=== PATIENT | female | born 1995 | race Caucasian/White ===

== ENCOUNTER 2018-12-07 10:42 | Emergency (ER) | payer SELFPAY ==
[2018-12-07] MEDS ORDERED: LIDOCAINE 1% 20 ML MDV ONE (11:03)
--- NOTE | 2018-12-07 12:18 | RAD REPORT ---
EXAM DESCRIPTION: RAD - Tib Fib Right - 12/07/2018 11:27 am CLINICAL HISTORY: Right leg pain . FINDINGS: No fracture is seen Laceration involves the anterior lower right knee.
--- NOTE | 2018-12-07 12:19 | RAD REPORT ---
EXAM DESCRIPTION: RAD - Hand Right 3 View - 12/07/2018 11:27 am CLINICAL HISTORY: Right hand pain status post injury FINDINGS: No fracture or dislocation is seen.
[2018-12-07] MEDS ORDERED: AMOX/K CLAV 875 MG TAB ONE (12:55)
--- NOTE | 2018-12-07 12:57 | ER ---
Nurse's Notes [facility] Name: Rachele Quiroz Age: 23 yrs Sex: Female : 1995 Arrival Date: 12/07/2018 Time: 10:44 Bed 16 Private MD: Diagnosis: Dog Bite;Right Leg Laceration;Right 3rd finger laceration Presentation: 12/07 10:40 Presenting complaint: EMS states: Pt. is A \T\ O x 4, was working at the [facility] when she rb1 was bitten by two different dogs on the right knee and right middle digit. The wound was dressed by EMS on site. NKDA and no medications. BP 145/82, P 128, R 20, 99% RA. Transition of care: [facility]. Onset of symptoms was December 07, 2018 at 10:25. Risk Assessment: Do you want to hurt yourself or someone else? Patient reports no desire to harm self or others. Initial Sepsis Screen: Does the patient meet any 2 criteria? No. Patient's initial sepsis screen is negative. Does the patient have a suspected source of infection? No. Patient's initial sepsis screen is negative. Care prior to arrival: None. 10:40 Method Of Arrival: EMS: [facility] rb1 10:40 Acuity: JAZIEL 3 rb1 Triage Assessment: 10:40 Bite description: bite sustained to right knee and right middle digit is from animal, rb1 was sustained less than 30 minutes ago. by a dog, animal information: vaccination(s) is unknown, was sustained less than 30 minutes ago. Animal status: [facility]. General: Appears uncomfortable, Behavior is anxious. Pain: Complains of pain in Right knee and right middle digit. Neuro: Level of Consciousness is awake, alert, obeys commands, Oriented to person, place, time, situation. Cardiovascular: Capillary refill < 3 seconds is brisk in bilateral fingers. Respiratory: Airway is patent Respiratory effort is even, unlabored, Respiratory pattern is regular, symmetrical. GI: No signs and/or symptoms were reported involving the gastrointestinal system. : No signs and/or symptoms were reported regarding the genitourinary system. Derm: Wound noted right knee and right middle digit Wound is dog bite. Musculoskeletal: Range of motion: intact in all extremities. 10:40 General: Pt. refused pain medication at this time. 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 - Social history:: Smoking status: Patient/guardian denies using tobacco. - Ebola Screening: : Patient negative for fever greater than or equal to 101.5 degrees Fahrenheit, and additional compatible Ebola Virus Disease symptoms. Screenin:40 Abuse screen: Denies threats or abuse. Nutritional screening: No deficits noted. rb1 Tuberculosis screening: No symptoms or risk factors identified. Fall Risk None identified. Assessment: 10:40 General: See Triage assessment. Derm: Skin Open wound to the right knee and right rb1 middle digit from the dog bite Skin is pink, warm \T\ dry. 11:08 Reassessment: Called [facility] to report the dog bite. They reported that someone [facility] had already called and the officer was currently at the [facility] taking a report. 11:38 Reassessment: Patient appears in no apparent distress at this time. Patient and/or rb1 family updated on plan of care and expected duration. Pain level reassessed. Patient is alert, oriented x 3, equal unlabored respirations, skin warm/dry/pink. 12:35 Reassessment: Patient appears in no apparent distress at this time. No changes from rb1 previously documented assessment. Minimal bleeding noted. 13:15 Reassessment: Applied non-adherent pad, 4 x 4 gauze, and Kerlix to wound. Pt. tolerated rb1 well. 13:30 Reassessment: Patient appears in no apparent distress at this time. Patient and/or rb1 family updated on plan of care and expected duration. Pain level reassessed. Patient is alert, oriented x 3, equal unlabored respirations, skin warm/dry/pink. Vital Signs: 10:40 BP 127 / 103; Pulse 139; Resp 20; Temp 97.9(O); Pulse Ox 98% on R/A; Weight 86.18 kg; rb1 Height 5 ft. 4 in. (162.56 cm); Pain 9/10; 10:47 BP 126 / 85; Pulse 119; Resp 20; Pulse Ox 100% on R/A; rb1 12:04 BP 120 / 97; Pulse 115; Resp 17; Temp 98.2; Pulse Ox 98% on R/A; mh5 13:00 BP 119 / 83; Pulse 90; Resp 17; Temp 98.3(O); Pulse Ox 99% on R/A; Pain 6/10; rb1 10:40 Body Mass Index 32.61 (86.18 kg, 162.56 cm) rb1 ED Course: 10:40 Arm band placed on right wrist. rb1 10:40 Patient has correct armband on for positive identification. Bed in low position. Call rb1 light in reach. Side rails up X 1. Pulse ox on. NIBP on. 10:44 Patient arrived in ED. rb1 10:47 Milad Robles PA is PHCP. [facility] 10:47 Thomas Rodríguez MD is Attending Physician. [facility] 11:12 Triage completed. rb1 11:17 Michelle Daniel, RN is Primary Nurse. rb1 11:28 Hand Right 3 View XRAY In Process Unspecified. EDMS 11:28 Tib Fib Right XRAY In Process Unspecified. EDMS 12:05 CLEANED WOUND. mh5 13:35 Patient did not have IV access during this emergency room visit. rb1 14:04 Primary Nurse role handed off by Michelle Daniel, PAM rb1 14:04 Michelle Daniel, PAM is Primary Nurse. rb1 Administered Medications: 11:20 Drug: Lidocaine (1 %) 1 vials Volume: 20 ml; Route: Infiltration; rb1 11:20 Drug: Marcaine (0.5 %) 1 vials Volume: 10 ml; Route: Infiltration; rb1 12:43 Drug: Augmentin 875 mg Route: PO; rb1 13:15 Follow up: Response: No adverse reaction rb1 Outcome: 12:57 Discharge ordered by . [facility] 13:35 Patient left the ED. rb1 13:35 Discharged to home via wheelchair, with crutches, with significant other. rb1 13:35 Condition: stable 13:35 Discharge instructions given to patient, Instructed on discharge instructions, follow up and referral plans. medication usage, Demonstrated understanding of instructions, follow-up care, medications, Prescriptions given X 2. Signatures: Dispatcher [employer] EDMS Milad Robles PA PA [facility] Michelle Daniel, RN RN rb1 Karin Walker 5 Corrections: (The following items were deleted from the chart) 14:05 14:05 Patient left the ED. rb1 rb1
--- NOTE | 2018-12-07 12:57 | EDPHYS ---
Physician Documentation [facility] Name: Rachele Quiroz Age: 23 yrs Sex: Female : 1995 Arrival Date: 12/07/2018 Time: 10:44 Bed 16 Private MD: ED Physician Thomas Rodríguez HPI: 12/07 10:47 This 23 yrs old Female presents to ER via EMS with complaints of Dog Bite. jmm 10:47 The patient was bitten on the right hand and right leg. Onset: The symptoms/episode jmm began/occurred acutely, just prior to arrival. Associated signs and symptoms: Pertinent positives: pain at site. The patient has not experienced similar symptoms in the past. This is a 23 year old female with a history of hlp that presents to the ED with complaints of right leg pain and right 3rd finger pain after a dog bite just prior to arrival. Patient states she was attacked by 2 dogs at the [facility]. Patient is UTD on tetanus immunization. 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 - Social history:: Smoking status: Patient/guardian denies using tobacco. - Ebola Screening: : Patient negative for fever greater than or equal to 101.5 degrees Fahrenheit, and additional compatible Ebola Virus Disease symptoms. ROS: 12:49 Constitutional: Negative for fever, chills, and weight loss, Eyes: Negative for injury, jmm pain, redness, and discharge, Cardiovascular: Negative for chest pain, palpitations, and edema, Respiratory: Negative for shortness of breath, cough, wheezing, and pleuritic chest pain. 12:49 MS/extremity: Positive for injury or acute deformity, laceration. 12:49 Skin: Positive for laceration(s). 12:49 All other systems are negative. Exam: 12:49 Head/Face: atraumatic. Eyes: EOMI, no conjunctival erythema appreciated ENT: Moist jmm Mucus Membranes Neck: Trachea midline, Supple Chest/axilla: Normal chest wall appearance and motion. Cardiovascular: Regular rate and rhythm. No edema appreciated Respiratory: Normal respirations, no respiratory distress appreciated Abdomen/GI: Non distended, soft Back: Normal ROM 12:49 Constitutional: The patient appears alert, awake, anxious, uncomfortable. 12:49 Skin: lacerations noted to the right 3rd finger, right lateral knee, right anterior knee, right tibial region, no active bleeding appreciated, FROM appreciated, compartments are soft. 12:49 Neuro: Orientation: is normal, Mentation: is normal, Memory: is normal. 12:49 Psych: Behavior/mood is pleasant, cooperative. Vital Signs: 10:40 BP 127 / 103; Pulse 139; Resp 20; Temp 97.9(O); Pulse Ox 98% on R/A; Weight 86.18 kg; rb1 Height 5 ft. 4 in. (162.56 cm); Pain 9/10; 10:47 BP 126 / 85; Pulse 119; Resp 20; Pulse Ox 100% on R/A; rb1 12:04 BP 120 / 97; Pulse 115; Resp 17; Temp 98.2; Pulse Ox 98% on R/A; mh5 13:00 BP 119 / 83; Pulse 90; Resp 17; Temp 98.3(O); Pulse Ox 99% on R/A; Pain 6/10; rb1 10:40 Body Mass Index 32.61 (86.18 kg, 162.56 cm) rb1 Laceration: 12:49 Wound Repair of 6cm ( 2.4in ) subcutaneous laceration to right leg. Distal jmm neuro/vascular/tendon intact. Anesthesia: Local anesthetic administered with 6 mls of Lido/Marcaine. Wound prep: Extensive cleansing, Wound irrigation with saline by mi, Copious irrigation. Skin closed with 3 3-0 Prolene using simple sutures and sterile technique. Patient tolerated well. MDM: 10:47 Patient medically screened. [facility] 12:49 Data reviewed: vital signs, nurses notes. Counseling: I had a detailed discussion with matthew the patient and/or guardian regarding: the historical points, exam findings, and any diagnostic results supporting the discharge/admit diagnosis, radiology results, the need for outpatient follow up, to return to the emergency department if symptoms worsen or persist or if there are any questions or concerns that arise at home. ED course: Wound copious irrigated. Patient prescribed abx. Patient was given strict wound infection return precautions. Patient understood and agrees with the plan of care. . 12/07 10:48 Order name: Hand Right 3 View XRAY; Complete Time: 12:22 [facility] 12/07 10:48 Order name: Tib Fib Right XRAY; Complete Time: 12:22 [facility] 12/07 14:04 Order name: Crutches; Complete Time: 14:04 rb1 Administered Medications: 11:20 Drug: Lidocaine (1 %) 1 vials Volume: 20 ml; Route: Infiltration; rb1 11:20 Drug: Marcaine (0.5 %) 1 vials Volume: 10 ml; Route: Infiltration; rb1 12:43 Drug: Augmentin 875 mg Route: PO; rb1 13:15 Follow up: Response: No adverse reaction rb1 Disposition: 14:44 Co-signature as Attending Physician, Thomas Rodríguez MD. rn Disposition: 12/07/18 12:57 Discharged to Home. Impression: Dog Bite, Right Leg Laceration, Right 3rd finger laceration. - Condition is Stable. - Discharge Instructions: Laceration Care, Adult, Animal Bite. - Prescriptions for Augmentin 875- 125 mg Oral Tablet - take 1 tablet by ORAL route every 12 hours for 10 days; 20 tablet. Ultracet 37.5- 325 mg Oral Tablet - take 1 tablet by ORAL route every 6 hours - for up to 5 days; do not exceed 8 tablets per day.; 20 tablet. - Medication Reconciliation Form, Thank You Letter, Antibiotic Education, Prescription Opioid Use, Work release form form. - Follow up: Private Physician; When: 2 - 3 days; Reason: Recheck today's complaints, Continuance of care, Re-evaluation by your physician. Signatures: Dispatcher [employer] EDMS Milad Robles PA PA jmm Nieto, Roman, MD MD rn Barber, Rebecca, RN RN rb1 Corrections: (The following items were deleted from the chart) 13:35 12:57 12/07/2018 12:57 Discharged to Home. Impression: Dog Bite; Right Leg Laceration; rb1 Right 3rd finger laceration. Condition is Stable. Forms are Medication Reconciliation Form, Thank You Letter, Antibiotic Education, Prescription Opioid Use. Follow up: Private Physician; When: 2 - 3 days; Reason: Recheck today's complaints, Continuance of care, Re-evaluation by your physician. [facility] 14:05 13:35 12/07/2018 12:57 Discharged to Home. Impression: Dog Bite; Right Leg Laceration; rb1 Right 3rd finger laceration. Condition is Stable. Discharge Instructions: Laceration Care, Adult, Animal Bite. Prescriptions for Augmentin 875-125 mg Oral Tablet - take 1 tablet by ORAL route every 12 hours for 10 days; 20 tablet, Ultracet 37.5-325 mg Oral Tablet - take 1 tablet by ORAL route every 6 hours - for up to 5 days; do not exceed 8 tablets per day.; 20 tablet. and Forms are Medication Reconciliation Form, Thank You Letter, Antibiotic Education, Prescription Opioid Use, Work release form. Follow up: Private Physician; When: 2 - 3 days; Reason: Recheck today's complaints, Continuance of care, Re-evaluation by your physician. rb1
== END 2018-12-07 14:05 | disposition home or self-care (01) ==
LOC: ER 10:42
PROC: 0JQN0ZZ Repair Right Lower Leg Subcutaneous Tissue and Fascia, Open Approach (ICD-10-PCS; principal; 2018-12-07)
DX: S61.252A Open bite of right middle finger without damage to nail, initial encounter (principal); S81.851A Open bite, right lower leg, initial encounter; W54.0XXA Bitten by dog, initial encounter; Y93.89 Activity, other specified; Y92.9 Unspecified place or not applicable; Y99.0 Civilian activity done for income or pay
CPT/HCPCS: 99284

== ENCOUNTER 2020-02-24 16:41 | Emergency (ER) | payer BC, SELFPAY ==
[2020-02-24] MEDS ORDERED: FAMOTIDINE 20 MG/2 ML VIAL IV ONE (17:04)
[2020-02-24] MEDS ORDERED: DIPHENHYDRAMINE 50 MG/ML VIAL ONE (17:04)
[2020-02-24] MEDS ORDERED: METHYLPREDNISOLONE 125 MG INJ ONE (17:04)
[2020-02-24 17:10] LABS: Absolute Lymphocytes (CBC) 5.8 K/uL (0.7-4.9); Basophils % 1.1 % (0-1.3); Hematocrit 45.4 % (36.0-45.0); Lymphocytes % 36.7 % (15.3-44.8); MPV 8.7 fL (7.6-11.3); RBC Red Blood Cell Count 5.07 M/uL (3.86-4.86)
[2020-02-24] MEDS ORDERED: ONDANSETRON 4 MG/2 ML VIAL ONE (17:13)
[2020-02-24 17:22] LABS: Protime INR 0.89
[2020-02-24] MEDS ORDERED: MAGNESIUM SULFATE 1 gm IVPB 1 GM/100 ML BAG IV ONE (17:23)
[2020-02-24 17:29] LABS: BUN Blood Urea Nitrogen 10 mg/dL (7-18); Bicarbonate 27 mmol/L (21-32); Glucose Level 122 mg/dL (74-106); Magnesium 2.1 mg/dL (1.8-2.4); Sodium Level 138 mmol/L (136-145)
[2020-02-24 17:58] LABS: NT PRO-BNP < 5 pg/mL (<125)
--- NOTE | 2020-02-24 18:27 | RAD REPORT ---
EXAM DESCRIPTION: RAD - Chest Single View - 02/24/2020 5:14 pm CLINICAL HISTORY: SOB COMPARISON: None TECHNIQUE: AP portable chest image was obtained 02/24/2020 5:14 pm . FINDINGS: Lungs are clear. Heart and vasculature are normal. No measurable pleural effusion and no p neumothorax. No acute bony abnormality seen. No acute aortic findings suspected. IMPRESSION: No acute cardiopulmonary process.
[2020-02-24] MEDS ORDERED: ALBUTEROL INHALER 60 PUFF/8 GM IH ONE (18:35)
[2020-02-24] MEDS ORDERED: NA CHLORIDE 0.9% 1,000 ML ONE (19:33)
--- NOTE | 2020-02-24 20:07 | ER ---
Nurse's Notes [facility] Name: Rachele Quiroz Age: 24 yrs Sex: Female : 1995 Arrival Date: 02/24/2020 Time: 16:42 Bed 2 Private MD: Diagnosis: Shortness of breath Presentation: 02/23 16:52 Chief complaint: Parent and/or Guardian states: difficulty breathing that began 15 ss minutes prior to arrival. This has occurred once in the past and reports she was told she had an allergic reaction to an unknown allergen. Coronavirus screen: Client denies travel out of the [place] in the last 14 days. Ebola Screen: Patient denies exposure to infectious person. Patient denies travel to an Ebola-affected area in the 21 days before illness onset. Initial Sepsis Screen: Does the patient meet any 2 criteria? RR > 20 per min. HR > 90 bpm. Does the patient have a suspected source of infection? No. Patient's initial sepsis screen is negative. Risk Assessment: Do you want to hurt yourself or someone else? Patient reports no desire to harm self or others. Onset of symptoms was February 24, 2020. 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 - Social history:: Smoking status: Patient/guardian denies using. Screenin:55 Abuse screen: Denies threats or abuse. Nutritional screening: No deficits noted. em Tuberculosis screening: No symptoms or risk factors identified. Fall Risk None identified. Assessment: 16:52 General: Appears distressed, uncomfortable, well groomed, well developed, well em nourished, Behavior is anxious, restless, Denies fever. Pain: Complains of pain in chest Quality of pain is described as squeezing, Pain began suddenly. Neuro: Level of Consciousness is awake, alert, obeys commands, Oriented to person, place, time, situation, Appropriate for age. Cardiovascular: Rhythm is sinus tachycardia. Respiratory: Reports shortness of breath at rest Airway is patent Respiratory effort is labored, using tripod position, Breath sounds are diminished bilaterally. the patient has severe shortness of breath Denies cough. Derm: Skin is intact, is healthy with good turgor, Skin is pink, warm \T\ dry. 17:45 Reassessment: Patient appears in no apparent distress at this time. Patient and/or em family updated on plan of care and expected duration. Pain level reassessed. Patient states feeling better. Patient states symptoms have improved. 18:50 Reassessment: Patient appears in no apparent distress at this time. Patient and/or em family updated on plan of care and expected duration. Pain level reassessed. Patient is alert, oriented x 3, equal unlabored respirations, skin warm/dry/pink. Patient states feeling better. Patient states symptoms have improved. 19:15 General: Appears in no apparent distress. Behavior is calm, cooperative, appropriate wh for age. Pain: Denies pain. Neuro: Level of Consciousness is awake, alert, obeys commands, Oriented to person, place, time, situation, Appropriate for age. Cardiovascular: Heart tones S1 S2 Rhythm is sinus tachycardia. Respiratory: Airway is patent Respiratory effort is even, unlabored, Respiratory pattern is regular, symmetrical, Breath sounds are clear bilaterally. GI: Abdomen is non-distended. : No signs and/or symptoms were reported regarding the genitourinary system. EENT: No signs and/or symptoms were reported regarding the EENT system. Derm: Skin is intact, is healthy with good turgor, Skin is pink, warm \T\ dry. normal. Musculoskeletal: Circulation, motion, and sensation intact. 19:30 Reassessment: Pt ambulated in the [address] with portable pulse Ox, Maintained sats at around 94-96%, notified Provider. 19:49 Reassessment: Patient appears in no apparent distress at this time. No changes from previously documented assessment. Patient and/or family updated on plan of care and expected duration. Pain level reassessed. Patient is alert, oriented x 3, equal unlabored respirations, skin warm/dry/pink. 20:21 Reassessment: Patient appears in no apparent distress at this time. Patient and/or wh family updated on plan of care and expected duration. Pain level reassessed. Patient is alert, oriented x 3, equal unlabored respirations, skin warm/dry/pink. Patient states feeling better. Patient states symptoms have improved. Vital Signs: 16:52 BP 100 / 85; Pulse 131; Resp 26; Temp 98.4(A); Pulse Ox 82% on R/A; Weight 83.91 kg; ss 18:00 BP 123 / 81; Pulse 114; Resp 24; Pulse Ox 100% on Non-rebreather mask; em 18:33 BP 123 / 81; Pulse 120; Resp 28; Pulse Ox 95% on R/A; em 18:50 BP 123 / 81; Pulse 108; Resp 22; Temp 98.3(O); Pulse Ox 96% on R/A; em 19:50 BP 137 / 81; Pulse 102; Resp 18; Pulse Ox 95% on R/A; wh ED Course: 16:42 Patient arrived in ED. ds1 16:45 Franki Ackerman PA is PHCP. cp 16:45 Aron Poole MD is Attending Physician. cp 16:45 Trey Vargas, PAM is Primary Nurse. em 16:54 Triage completed. ss 16:55 Arm band placed on right wrist. ss 16:55 Patient has correct armband on for positive identification. Placed in gown. Bed in low em position. Call light in reach. Side rails up X2. Pulse ox on. NIBP on. 17:00 Initial lab(s) drawn, by me, sent to lab. Inserted saline lock: 20 gauge in right em antecubital area, using aseptic technique. Blood collected. 17:10 X-ray(s) taken. sv 17:12 XRAY Chest (1 view) In Process Unspecified. EDMS 19:34 Throat Culture Sent. dm5 20:22 No provider procedures requiring assistance completed. IV discontinued, intact, wh bleeding controlled, No redness/swelling at site. Administered Medications: 15:54 Drug: Benadryl 25 mg Route: IVP; Site: right antecubital; em 17:30 Follow up: Response: No adverse reaction em 16:56 Drug: SOLU-Medrol 125 mg Route: IVP; Site: right antecubital; em 17:30 Follow up: Response: No adverse reaction em 16:58 Drug: Pepcid 20 mg Route: IVP; Site: right antecubital; em 17:30 Follow up: Response: No adverse reaction em 17:05 Drug: Zofran (Ondansetron) 4 mg Route: IVP; Site: right antecubital; 18:00 Follow up: Response: No adverse reaction; Marked relief of symptoms; Nausea is decreasedem 17:20 Drug: Magnesium Sulfate 1 grams Route: IVPB; Infused Over: 1 hrs; Site: right em antecubital; 18:30 Follow up: Response: No adverse reaction; IV Status: Completed infusion; IV Intake: em 100ml 18:25 Drug: Albuterol HFA Inhaler 2 puffs Route: Inhalation; em 18:52 Follow up: Response: No adverse reaction; Marked relief of symptoms em 19:26 Drug: NS 0.9% 1000 ml Route: IV; Rate: 1 bolus; Site: right antecubital; 20:22 Follow up: Response: No adverse reaction; IV Status: Completed infusion Intake: 18:30 IV: 100ml; Total: 100ml. em Outcome: 20:06 Discharge ordered by MD. cp 20:22 Discharged to home ambulatory, with friend. 20:22 Condition: stable 20:22 Discharge instructions given to patient, Instructed on discharge instructions, follow up and referral plans. medication usage, POC Demonstrated understanding of instructions, follow-up care, medications, POC Prescriptions given X 2. 20:23 Patient left the ED. Addendum: 02/26/2020 18:18 Addendum: COVID-19 Result: Negative result given to RN to notify pt. Attempted to i w contact pt regarding negative COVID-19 swab results. Left voice mail. Signatures: Dispatcher [employer] Vale Berman RN RN dm5 Verde, Stephanie, RN RN sv Munoz, Edgar, RN RN Clare Whalen ds1 Yara Quick RN RN iw Smirch, Shelby, RN RN ss Page, Corey, PA PA cp Habalo, Winsy Corrections: (The following items were deleted from the chart) 02/23 18:51 18:50 BP 123 / 81; Pulse 20bpm; Resp 22bpm; Pulse Ox 96% RA; Temp 98.3F Oral; em em
--- NOTE | 2020-02-24 20:07 | EDPHYS ---
Physician Documentation [facility] Name: Rachele Quiroz Age: 24 yrs Sex: Female : 1995 Arrival Date: 02/24/2020 Time: 16:42 Bed 2 Private MD: ED Physician Aron Poole HPI: 02/23 17:00 This 24 yrs old Female presents to ER via Wheelchair with complaints of cp Shortness Of Breath. 17:00 The patient has shortness of breath at rest. cp 17:00 Onset: The symptoms/episode began/occurred suddenly, 15 minute(s) ago. cp 17:00 Duration: The symptoms are continuous, and are steadily getting worse. cp DOCK GUARD: 19:50 LMP 01/2020 wh Historical: - Allergies: 16:55 No Known Allergies; ss - PMHx: 16:55 High Cholesterol; HYPOGLYCEMIA; ss - Immunization history:: Adult Immunizations up to date. - Social history:: Smoking status: Patient/guardian denies using. ROS: 17:05 Constitutional: Negative for body aches, chills, fever, poor PO intake. cp 17:05 Eyes: Negative for injury, pain, redness, and discharge. cp 17:05 Cardiovascular: Negative for chest pain, edema. 17:05 Respiratory: Positive for shortness of breath, at rest. 17:05 Abdomen/GI: Negative for abdominal pain, nausea, vomiting, and diarrhea. 17:05 Neuro: Negative for altered mental status, headache, syncope, weakness. 17:05 All other systems are negative. Exam: 17:10 Constitutional: The patient appears alert, awake, non-diaphoretic, non-toxic, well cp developed, well nourished, in obvious distress, moderately distressed. 17:10 Head/Face: Normocephalic, atraumatic. cp 17:10 Eyes: Periorbital structures: appear normal, Conjunctiva: normal, no exudate, no injection, Lids and lashes: appear normal, bilaterally. 17:10 ENT: External ear(s): are unremarkable, Ear canal(s): are normal, clear, TM's: bulging, is not appreciated, bilaterally, dullness, bilaterally, erythema, is not appreciated, bilaterally, Nose: is normal, Mouth: Lips: moist, Oral mucosa: moist, Posterior pharynx: Airway: no evidence of obstruction, patent. 17:10 Neck: ROM/movement: is normal, is supple, no meningismus, no nuchal rigidity, Lymph nodes: no appreciated lymphadenopathy. 17:10 Chest/axilla: Inspection: normal, Palpation: is normal, no crepitus, no tenderness. 17:10 Cardiovascular: Rate: tachycardic, Rhythm: regular, Edema: is not appreciated, JVD: is not appreciated. 17:10 Respiratory: moderate respiratory distress is noted, Respirations: labored breathing, that is moderate, shallow respirations, that is moderate, Breath sounds: decreased breath sounds, that are severe, throughout, stridor, is not appreciated. 17:10 Abdomen/GI: Inspection: abdomen appears normal, Palpation: abdomen is soft and non-tender, in all quadrants. 17:10 Back: pain, is absent, ROM is normal. 17:10 Skin: no rash present. 17:10 Neuro: Orientation: to person, place \T\ time. Mentation: is normal. 17:35 ECG was reviewed by the Attending Physician. Vital Signs: 16:52 BP 100 / 85; Pulse 131; Resp 26; Temp 98.4(A); Pulse Ox 82% on R/A; Weight 83.91 kg; ss 18:00 BP 123 / 81; Pulse 114; Resp 24; Pulse Ox 100% on Non-rebreather mask; em 18:33 BP 123 / 81; Pulse 120; Resp 28; Pulse Ox 95% on R/A; em 18:50 BP 123 / 81; Pulse 108; Resp 22; Temp 98.3(O); Pulse Ox 96% on R/A; em 19:50 BP 137 / 81; Pulse 102; Resp 18; Pulse Ox 95% on R/A; MDM: 16:50 Patient medically screened. 17:35 Test interpretation: by ED physician or midlevel provider: chest xray negative for cp focal pneumonia. 19:30 Data reviewed: vital signs, nurses notes, lab test result(s), EKG, radiologic studies, cp plain films. 02/23 16:54 Order name: COVID-19 cp 02/23 16:54 Order name: Flu; Complete Time: 18:31 02/23 16:54 Order name: Strep; Complete Time: 18:31 02/23 16:54 Order name: Basic Metabolic Panel; Complete Time: 18:03 cp 02/23 18:03 Interpretation: Normal except: GLUC 122. cp 02/23 16:54 Order name: CBC with Diff; Complete Time: 17:34 cp 02/23 17:34 Interpretation: Normal except: WBC 15.9; RBC 5.07; HGB 15.3; HCT 45.4; EOSINOPHIL % cp 10.4; LYMA 5.8; MNA 1.5; EOSA 1.7. 02/23 16:54 Order name: Magnesium; Complete Time: 18:03 cp 02/23 16:54 Order name: XRAY Chest (1 view); Complete Time: 18:31 cp 02/23 18:31 Interpretation: Report review. 02/23 16:54 Order name: NT PRO-BNP; Complete Time: 18:03 cp 02/23 16:54 Order name: PT-INR; Complete Time: 17:34 cp 02/23 16:54 Order name: D-Dimer; Complete Time: 17:34 02/23 18:31 Order name: Throat Culture EDSD 02/23 16:54 Order name: Document PUI#; Complete Time: 16:59 cp 02/23 16:54 Order name: Droplet/Contact Precautions; Complete Time: 16:59 cp 02/23 16:54 Order name: Labs collected and sent; Complete Time: 16:59 cp 02/23 16:54 Order name: Notify Health Dept [phone]/ ; Complete Time: 16:58 cp 02/23 16:54 Order name: O2 Per Protocol; Complete Time: 16:58 cp 02/23 16:54 Order name: EKG; Complete Time: 16:55 cp 02/23 16:54 Order name: Cardiac monitoring; Complete Time: 17:22 cp 02/23 16:54 Order name: EKG - Nurse/Tech; Complete Time: 17:31 cp 02/23 16:54 Order name: IV Saline Lock; Complete Time: 17:22 cp 02/23 16:54 Order name: O2 Sat Monitoring; Complete Time: 17:23 cp EC:35 Rate is 109 beats/min. Rhythm is regular. KS interval is normal. QRS interval is cp normal. QT interval is normal. Interpreted by me. Reviewed by me. Administered Medications: 15:54 Drug: Benadryl 25 mg Route: IVP; Site: right antecubital; em 17:30 Follow up: Response: No adverse reaction em 16:56 Drug: SOLU-Medrol 125 mg Route: IVP; Site: right antecubital; em 17:30 Follow up: Response: No adverse reaction em 16:58 Drug: Pepcid 20 mg Route: IVP; Site: right antecubital; em 17:30 Follow up: Response: No adverse reaction em 17:05 Drug: Zofran (Ondansetron) 4 mg Route: IVP; Site: right antecubital; ss 18:00 Follow up: Response: No adverse reaction; Marked relief of symptoms; Nausea is decreasedem 17:20 Drug: Magnesium Sulfate 1 grams Route: IVPB; Infused Over: 1 hrs; Site: right em antecubital; 18:30 Follow up: Response: No adverse reaction; IV Status: Completed infusion; IV Intake: em 100ml 18:25 Drug: Albuterol HFA Inhaler 2 puffs Route: Inhalation; em 18:52 Follow up: Response: No adverse reaction; Marked relief of symptoms em 19:26 Drug: NS 0.9% 1000 ml Route: IV; Rate: 1 bolus; Site: right antecubital; 20:22 Follow up: Response: No adverse reaction; IV Status: Completed infusion Disposition: 02/24/20 20:06 Discharged to Home. Impression: Shortness of breath. - Condition is Stable. - Discharge Instructions: Shortness of Breath. - Prescriptions for prednisone 50 mg Oral tablet - take 1 tablet by ORAL route once daily for 5 days; 5 tablet. Albuterol Sulfate 90 mcg/actuation - inhale 1-2 puff by INHALATION route every 4-6 hours; 1 Inhaler. - Medication Reconciliation Form, Thank You Letter, Antibiotic Education, Prescription Opioid Use form. - Follow up: Private Physician; When: 1 - 2 days; Reason: Recheck today's complaints. - Problem is new. - Symptoms have improved. Addendum: 02/26/2020 09:18 Co-signature as Attending Physician, Aron Poole MD I agree with the assessment and k dr plan of care. Signatures: Dispatcher [employer] Aron Mcdaniel MD MD kdr Munoz, Edgar, RN RN Ximena Bullard RN RN ss Franki Ackerman, ZULLY PA Mayra De Corrections: (The following items were deleted from the chart) 02/23 17:34 17:34 Normal except: WBC 15.9; RBC 5.07; HGB 15.3; HCT 45.4; EOSINOPHIL % 10.4; LYMA cp 5.8. cp 20:23 20:06 02/24/2020 20:06 Discharged to Home. Impression: Shortness of breath. Condition is Stable. Forms are Medication Reconciliation Form, Thank You Letter, Antibiotic Education, Prescription Opioid Use. Follow up: Private Physician; When: 1 - 2 days; Reason: Recheck today's complaints. Problem is new. Symptoms have improved. cp
[2020-02-24 21:28] VITALS: BP 100/85; TEMP 98.4; O2SAT 82
== END 2020-02-24 20:23 | disposition home or self-care (01) ==
LOC: ER 16:41
DX: R06.02 Shortness of breath (principal); Z20.828 Contact with and (suspected) exposure to other viral communicable diseases
CPT/HCPCS: 96365; 96361; 93005; 87070; 85025; 80048; 36415; 83735; 85610; 85379; 87081; 83880; 87804 ×2; 71045; 96375; 99291; 99292; U0002; J1200; J3475; J7030; J2930; J2405